=== PATIENT | male | born 1985 | race Caucasian/White ===

== ENCOUNTER 2024-03-04 09:14 | Emergency (ER) | payer OTHER, SELFPAY ==
--- NOTE | ~2024-03-04 | XR_ITS ---
XR hand RT min 3V 03/04/2024 09:30 Indication: Right hand pain Procedure: 3 views right hand Comparison: No prior studies for comparison. Findings: No fracture, subluxation or dislocation. There is anatomic alignment. No soft tissue abnorm ality. Impression: 1: No acute fracture. Reviewed, dictated and finalized at location [facility]. Impression: 1: No acute fracture.
[2024-03-04 09:24] VITALS: BP 139/78; PULSE 52; RESP 18; TEMP 36.3; O2SAT 99
--- NOTE | 2024-03-04 09:24 | ED.UPPEXIN ---
HPI - Extremity Injury (Upper) General Chief Complaint: Extremity Injury, Upper Stated Complaint: Right Hand Injury Time Seen by Provider: 03/04/24 09:30 Source: patient, RN notes reviewed and old records reviewed Mode of arrival: ambulatory Limitations: no limitations History of Present Illness HPI narrative: 38 year old male who presents to [facility] care with complaints of injury to his right hand on when he was laying [place] and trying to get transition piece to go into place between rooms. He states that he tried using his hand to pound it in place and later the evening noted some tenderness to his tight hand. Patient reports that this morning his hand is swollen dorsal aspect and tenderness along the 5th metacarpal bone area, moves all fingers well increased pain voiced with movement MD complaint: injury to: right and hand Onset (ago): day(s) (3) Handedness: right Place: home Severity scale (1-10): 7 Treatments prior to arrival: cold therapy Related Data Home Medications Medication Instructions Recorded Confirmed No Home Medications 03/04/24 03/04/24 Allergies Allergy/AdvReac Type Severity Reaction Status Date / Time No Known Allergies Allergy Unverified 03/04/24 09:25 Review of Systems Review of Systems: CONSTITUTIONAL: Denies fever, chills, or sweats. EYES: Denies visual changes, redness, or discharge. ENT: Denies rhinorrhea, congestion, sore throat, or otalgia. CARDIOVASCULAR: Denies chest pain, palpitations, or edema. RESPIRATORY: Denies cough or dyspnea. GASTROINTESTINAL: Denies abdominal pain, nausea, vomiting, or diarrhea. GENITOURINARY: Denies dysuria or hematuria. SKIN: Denies rash or itching. MUSCULOSKELETAL: Denies any acute back pain,positive for right hand swelling and pain dorsal aspect, or myalgia. NEUROLOGIC: Denies headache, numbness, or weakness. PSYCHIATRIC: Denies anxiety or depression. All systems reviewed & are unremarkable except as noted in HPI and below PMFSH Past Medical History Medical History (Updated 03/04/24 @ 09:52 by Antonietta Boo NP) Diverticulitis (~01/2020) Low back pain Normal colonoscopy (~03/2020) Surgical History Surgical History (Updated 03/04/24 @ 09:35 by Antonietta Boo NP) H/O radiofrequency ablation (RFA) of nerve of lumbar spine No history of previous surgery Family History Family History Father Hypertension Mother Hypertension Grandparent Hypertension Cerebrovascular accident Social History Social History (Updated 03/04/24 @ 11:05 by Antonietta Boo NP) Smoking status: Former smoker Second hand tobacco smoke exposure: No Smoking end date: 06/07/16 Alcohol intake: current Substance use type: does not use Living arrangements: with family Gender identity (if verbalized by the patient): Male Comments At time of signature, agree with nursing past medical, surgical, social and family history. There is no relevant family history pertinent to the presenting complaint Exam Narrative: GENERAL: Well-appearing, well-nourished, and in no acute distress. HEAD: Normocephalic, atraumatic. EYES: PERRLA and EOMI. ENT: Nares clear, no rhinorrhea or epistaxis. Mucous membranes moist. NECK: Supple. no lymphadenopathy CHEST: Clear to auscultation. No respiratory distress. SAO2 99% on room air HEART: Regular rate and rhythm. No murmur heard. Normal peripheral pulses. ABDOMEN: Soft, nontender, nondistended, normal active bowel sounds. EXTREMITIES: Normal range of motion. No edema. positive for swelling to the dorsal aspect of his right hand with tenderness over 5th metacarpal bone, increased pain with movement of right hand, circulation and sensation intact SKIN: Warm, dry, no rash. NEURO: No focal deficits. Alert and oriented x3. Course Course Emergency Course: Patient is aware of diagnosis, understands and agrees to treatment plan.? Anticipatory guidance g
== END 2024-03-04 09:56 | disposition home or self-care (01) ==
PROVIDERS: Emergency Provider Registered Nurse
DX: S60.221A Contusion of right hand, initial encounter (principal); W22.01XA Walked into wall, initial encounter; Z87.891 Personal history of nicotine dependence
CPT/HCPCS: 73130; 99213; G0463

== ENCOUNTER 2024-04-08 16:46 | Emergency (ER) | payer OTHER, SELFPAY ==
--- NOTE | ~2024-04-08 | XR_ITS ---
[id number] DATE: 04/08/2024 17:19 INDICATION: Injury, left chest pain TECHNIQUE: PA chest. 4 views of left ribs. COMPARISON: None FINDINGS: No left rib fracture is detected. Normal heart size. No hilar or mediastinal enlargement. The lungs are normally inflated and clear. No pleural effusion or pulmonary vascular congestion or pneumothorax. IMPRESSION: Negative Reviewed, dictated and finalized at [facility]. Reviewed, dictated and finalized at location A. IMPRESSION: Negative
--- NOTE | ~2024-04-08 | XR_ITS ---
XR shoulder LT min 2V DATE: 04/08/2024 17:20 INDICATION: Injury. Left shoulder pain TECHNIQUE: 4 views COMPARISON: None FINDINGS: No fracture or dislocation, periosteal reaction or bone destruction or abnormal soft tissue calcification. IMPRESSION: Negative Reviewed, dictated and finalized at location A. IMPRESSION: Negative
[2024-04-08 16:56] VITALS: BP 137/87; PULSE 84; RESP 18; TEMP 37; O2SAT 100
--- NOTE | 2024-04-08 17:17 | ED_ITS ---
HPI - Extremity Injury (Upper) General Chief Complaint: Extremity Injury, Upper Stated Complaint: Tree fell across from right side History of Present Illness HPI narrative: Patient presents with left shoulder and left rib pain. Patient was trimming hedge trees and 1 fell landing on his left shoulder and left rib area. Patient has abrasions to his left ribs and back. No deformity noted no shortness of breath no chest pain normal range of motion of left shoulder. Patient denies any other injuries. Related Data Allergies Allergy/AdvReac Type Severity Reaction Status Date / Time No Known Allergies Allergy Unverified 03/04/24 09:25 Review of Systems Review of Systems: CONSTITUTIONAL: Denies fever, chills, or sweats. EYES: Denies visual changes, redness, or discharge. ENT: Denies rhinorrhea, congestion, sore throat, or otalgia. CARDIOVASCULAR: Denies chest pain, palpitations, or edema. RESPIRATORY: Denies cough or dyspnea. GASTROINTESTINAL: Denies abdominal pain, nausea, vomiting, or diarrhea. GENITOURINARY: Denies dysuria or hematuria. SKIN: Denies rash or itching. MUSCULOSKELETAL: Denies back pain, joint pain, or myalgia. NEUROLOGIC: Denies headache, numbness, or weakness. PSYCHIATRIC: Denies anxiety or depression. [facility] Past Medical History Medical History (Updated 04/08/24 @ 17:23 by DEAN Hannon) Diverticulitis (~01/2020) Low back pain Normal colonoscopy (~03/2020) Surgical History Surgical History (Updated 03/04/24 @ 09:35 by Antonietta Boo NP) H/O radiofrequency ablation (RFA) of nerve of lumbar spine No history of previous surgery Family History Family History Father Hypertension Mother Hypertension Grandparent Hypertension Cerebrovascular accident Social History Social History (Updated 03/04/24 @ 11:05 by Antonietta Boo NP) Smoking status: Former smoker Second hand tobacco smoke exposure: No Smoking end date: 06/07/16 Alcohol intake: current Substance use type: does not use Living arrangements: with family Gender identity (if verbalized by the patient): Male Comments At time of signature, agree with nursing past medical, surgical, social and family history. There is no relevant family history pertinent to the presenting complaint Exam Narrative: GENERAL: Well-appearing, well-nourished, and in no acute distress. HEAD: Normocephalic, atraumatic. EYES: PERRLA and EOMI. ENT: Nares clear, no rhinorrhea or epistaxis. Mucous membranes moist. NECK: Supple. CHEST: Clear to auscultation. No respiratory distress. HEART: Regular rate and rhythm. No murmur heard. Normal peripheral pulses. ABDOMEN: Soft, nontender, nondistended, normal active bowel sounds. EXTREMITIES: Normal range of motion. No edema. Shoulder exam normal shoulder examNO SWELLING, BRUISING, SKIN CHANGES. SKIN INTACT. NORMAL RADIAL PULSE. NO DEFORMITY OF SHOULDER. NO CLAVICLE TENDERNESS. NORMAL UE SENSATION AND STRENGTH. ROM EVALUATED - CAN RAISE UE ABOVE SHOULDER, CAN ABDUCT, ADDUCT, EXTERNALLY ROTATE AND CAN INTERNALLY ROTATE AND RAISE THUMB UP THE SPINE. NO AC JOINT TENDERNESS, CAN CROSS ARM HORIZONTALLY AND PLACE HAND ON OPPOSITE SHOULDER, NO WINGING OF THE SCAPULA. SUPRASPINATUS APPEARS NORMAL WITH ARMS STRAIGHT OUT AT 30 DEGREES, THUMB DOWN , CAN ABDUCT AGAINST RESISTANCE. ALL PAIN REPRODUCIBLE. RIB TENDER. NO CREPITUS OR SQ EMPHYSEMA OR DEFORMITY OR STEP OFFS. NO ECCHYMOSIS OR LESIONS. allL PAIN REPRODUCIBLE. RIB TENDER. NO CREPITUS OR SQ EMPHYSEMA OR DEFORMITY OR STEP OFFS. NO ECCHYMOSIS OR LESIONS. SKIN: Warm, dry, no rash. NEURO: No focal deficits. Alert and oriented x3. [place] Coma Scale Eye Opening: Spontaneous 4 [place] Coma Scale Motor: Obeys Commands 6 [place] Coma Scale Verbal: Oriented 5 [place] Coma Scale Total 15 Course Course Level of Care: Express Care Visit Vital Signs Vital signs: Vital Signs Temperature 37.0 C 04/08/24 16:56 Pulse Rate 84 04/08/24 16:56 Respiratory Rate 18 04/08/24 16:56 Blood Pressure 137/87 04/08/24 16:56 Pulse Oximetry 100 04/08/24 16:56 Oxygen Delivery Room Air 04/08/24 16:56 Temperature 37.0 C 04/08/24 16:56 Pulse Rate 84 04/08/24 16:56 Respiratory Rate 18 04/08/24 16:56 Blood Pressure 137/87 04/08/24 16:56 Pulse Oximetry 100 04/08/24 16:56 Oxygen Delivery Room Air 04/08/24 16:56 Please STEPHEN schedule a followup visit with your personal physician for further evaluation and treatment. Including recheck and discussion of your blood pressure. If your symptoms persist, change or worsen significantly before you can contact your personal physician then please, without delay, go to the emergency department for further evaluation Discharge Plan Discharge Clinical Impression: Shoulder contusion, Rib contusion, Rib pain on left side Patient Disposition: Home, Self-Care Condition: Stable Instructions: Antibiotic Form, Shoulder Sprain (ED), Shoulder Pain (ED), Chest Contusion (ED) Additional Instructions: Medication as prescribed Monitor abrasion to left back apply mupirocin ointment as prescribed monitor any signs or symptoms of infection Follow-up with primary care provider in 4-5 days for re-evaluation If any new or worsening symptoms please go to ER immediately further evaluation treatment Prescriptions: New naproxen [EC-Naprosyn] 500 mg tablet,delayed release (DR/EC) 500 mg PO BID Qty: 14 0RF mupirocin 2 % ointment 1 applic TOPICAL TID 7 Days Qty: 15 0RF Follow-up/Referrals: PHYSICIAN,AUTO PHONE INSTALLER [Primary Care Provider] - Dexter Jalloh MD [Physician] - Stand Alone Forms: Work/School Release IP
== END 2024-04-08 17:50 | disposition home or self-care (01) ==
PROVIDERS: Emergency Provider Nurse Practitioner Family
DX: S40.012A Contusion of left shoulder, initial encounter (principal); S20.212A Contusion of left front wall of thorax, initial encounter; W19.XXXA Unspecified fall, initial encounter; Z87.891 Personal history of nicotine dependence
CPT/HCPCS: 71101; 73030; 99214; G0463

== ENCOUNTER 2024-06-06 07:35 | Outpatient (CLI) | payer OTHER, SELFPAY ==
--- NOTE | ~2024-06-06 | MR_ITS ---
MRI of the left shoulder Technique: Axial proton-density fat-sat images, coronal proton density fat-sat and T2 fat-sat images, and sagittal T1-weighted and T2 fat-sat images were acquired. Clinical History: Pain Findings: There is minimal AC joint degenerative change. Coracoclavicular, coracoacromial, and coraco humeral ligaments are intact. Supraspinatus and infraspinatus tendons are intact, without partial or full-thickness tear. There is mild tendinosis. Subscapularis tendon intact with moderate tendinosis. Tendon of long head of the bic eps is intact. No labral tear evident. Inferior glenohumeral ligament is intact. No degenerative change of the glenohumeral joint. No effusi on. No fluid distention of the subacromial/subdeltoid bursa. No muscle atrophy or edema. Impression: Mild rotator cuff tendinosis overall. Minimal AC joint degenerative change. Reviewed, dictated and finalized at [facility]. [employer] Impression: Mild rotator cuff tendinosis overall. Minimal AC joint degenerative change.
== END 2024-06-06 07:36 | disposition home or self-care (01) ==
LOC: MICIMG 07:36
PROVIDERS: Visit Provider Emergency Medicine
DX: M75.32 Calcific tendinitis of left shoulder (principal)
CPT/HCPCS: 73221